=== PATIENT | female | born 1985 | race Caucasian/White ===

== ENCOUNTER 2021-02-01 17:02 | Emergency (ER) | payer BC ==
[~2021-02-01] VITALS: Ht 157.5 cm; Wt 51.9 kg
[2021-02-01 17:10] VITALS: BP 123/76
--- NOTE | 2021-02-01 17:19 | PHYS DOC ---
General Adult EDM: Chief Complaint: HAND PROBLEM Problems: (1) Hand pain, right HPI: HPI: Patient is a 36 year old female who presents with pain to the fourth digit on her right hand. Patient states she sustained a boxer's fracture to the fifth metacarpal in October of this year. She was instructed to wear a brace for the next month, but took it off today. Her 2 large dogs were fighting, when she intervened she noticed medial displacement of her fourth digit with swelling and pain. She rates her pain as 8/10 currently, in addition to some tingling and temperature changes to the finger. She denies any bite or laceration. She denies any other injuries. Patient denies use of control or contraception, but states her part risk of is "very low." Patient has no other complaints at this time. Review of Systems: Review of Systems: Constitutional: Denies fever or chills Respiratory: Denies cough or shortness of breath Cardiovascular: Denies chest pain or edema Musculoskeletal: See HPI Integument: See HPI Neurologic: See HPI Allergies: Allergies: Allergies Coded Allergies Type Severity Reaction Last Updated Verified sulfamethoxazole Allergy Unknown 02/01/21 Yes trimethoprim Allergy Unknown 02/01/21 Yes Physical Exam: PE: Constitutional: Well developed, well nourished, no acute distress, non-toxic appearance. [] HENT: Normocephalic, atraumatic, bilateral external ears normal, nose normal. [] Eyes: Conjunctiva normal, no discharge. [] Cardiovascular: Heart rate regular rhythm, no murmur [] Lungs & Thorax: Bilateral breath sounds clear to auscultation [] Skin: Warm, dry, no erythema, no rash. [] Extremities: Right fourth digit is medially displaced, ecchymosis and swelling present. Range of motion of right fourth digit limited secondary to pain. Otherwise range of motion and strength are intact. Neurovascular intact in extremities x4. Neurologic: Alert and oriented X 3, normal motor function, normal sensory function, no focal deficits noted. [] EKG: EKG: [] Radiology/Procedures: Radiology/Procedures: PROCEDURE: HAND RIGHT 3V Exam: Right hand 3 views INDICATION: Injury, pain right hand TECHNIQUE: Frontal, lateral and oblique views of the right hand Comparisons: None FINDINGS: Obliquely oriented fracture to the proximal phalanx of the fourth digit. Additionally there is a obliquely oriented fracture through the fifth metacarpal. No other fractures are identified. Joint spaces are well-maintained. IMPRESSION: Obliquely oriented fracture to the proximal phalanx of the fourth digit and the fifth metacarpal. Electronically signed by: Ben Farley MD (02/01/2021 6:06 PM) [facility] Heart Score: C/O Chest Pain: N/A Course & Med Decision Making: Course & Med Decision Making Pertinent Labs and Imaging studies reviewed. (See chart for details) X-rays showed the fifth metacarpal fracture in addition to a new fourth proximal phalanx fracture. Dr. Russo's office was called to notify and make sure patient can be followed up with tomorrow morning. Spoke with Rocio who is comfortable with the vamsi taped third and fourth digits as well as a gutter splint. Patient will continue pain medication previously prescribed by Dr. Russo at home. Dragon Disclaimer: Dragon Disclaimer: This electronic medical record was generated, in whole or in part, using a voice recognition dictation system. Departure Departure: Impression: Primary Impression: Fracture of proximal phalanx of digit of right hand Additional Impression: Fracture of metacarpal bone with delayed healing Disposition: 01 HOME / SELF CARE / HOMELESS Condition: STABLE Referrals: PCP,NO (PCP) Patient Instructions: Finger Fracture, [id number], Hand Fracture, Metacarpals, [id number] Additional Instructions: Call Dr. Russo's office first thing in the morning tomorrow, at 8:30 AM. The nurse was notified of your visit today, and will ensure that you can be seen tomorrow. Please keep the splint provided here in the emergency department on until you reach the office tomorrow. At that time, they will reevaluate and determine whether new splint or other treatment is needed. Return to the emergency department for signs of compartment syndrome: Tingling, pale skin, cold extremity, absence of pulses. ANGY SALEH Feb 01, 2021 17:19
[2021-02-01] MEDS ORDERED: ACETAMINOPHEN 500 MG TABLET PO ONE (17:30)
--- NOTE | 2021-02-01 18:08 | RAD ---
Exam: Right hand 3 views INDICATION: Injury, pain right hand TECHNIQUE: Frontal, lateral and oblique views of the right hand Comparisons: None FINDINGS: Obliquely oriented fracture to the proximal phalanx of the fourth digit. Additionally there is a obli quely oriented fracture through the fifth metacarpal. No other fractures are identified. Joint spaces are well-maintained. IMPRESSION: Obliquely oriented fracture to the proximal phalanx of the fourth digit and the fifth metacarpal. Electronically signed by: Ben Farley MD (02/01/2021 6:06 PM) [facility]
== END 2021-02-01 18:20 | disposition home or self-care (01) ==
LOC: ER 17:02
DX: S62.306A Unspecified fracture of fifth metacarpal bone, right hand, initial encounter for closed fracture (principal); S62.304A Unspecified fracture of fourth metacarpal bone, right hand, initial encounter for closed fracture; X58.XXXA Exposure to other specified factors, initial encounter; Y93.89 Activity, other specified; Y92.89 Other specified places as the place of occurrence of the external cause; Y99.8 Other external cause status
CPT/HCPCS: 29125; 73130; 99283-25

== ENCOUNTER 2021-05-16 17:42 | Emergency (ER) | payer BC ==
[~2021-05-16] VITALS: Ht 157.5 cm; Wt 51.9 kg
--- NOTE | 2021-05-16 18:19 | PHYS DOC ---
Past History Past Surgical History: No Surgical History Alcohol Use: None General Adult EDM: Chief Complaint: ABDOMINAL PAIN IN HPI: HPI: ".. [place] leave on airplane at[place] 0200 am today.. I am nervous... This is my first and ultrasound that was normal on Monday.... everything looked okay ... I a.m. on vitamins.... But sometimes I have some lower pelvic abdomen cramping... Or discomfort... 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 . No history of trauma. Is on vitamins. Patient is normally healthy. No recent travel. Has not been to [place] for 3 years and plans to visit family on flight this morning in the [place] area. Patient has had COVID vaccination. Patient has not had COVID booster yet. Patient has not had flu vaccination. Patient normally follows with Dr. Alvarado. No history of dysuria. Patient's had normal stools.. No vaginal discharge or bleeding. heart rate runs 140s to 150s. Movement Review of Systems: Review of Systems: Constitutional: Denies fever or chills Eyes: Denies change in visual acuity HENT: Denies nasal congestion or sore throat Respiratory: Denies cough or shortness of breath Cardiovascular: Denies chest pain or edema GI: Denies abdominal pain,, vomiting, bloody stools or diarrhea. Complains of nausea and abdomen fullness : Denies dysuria Musculoskeletal: Denies back pain or joint pain Integument: Denies rash Neurologic: Denies headache, focal weakness or sensory changes Endocrine: Denies polyuria or polydipsia Lymphatic: Denies swollen glands Psychiatric: Denies depression or anxiety Family History: Family History: Noncontributory to presentation Current Medications: Current Meds: See nursing for home meds Allergies: Allergies: Allergies Coded Allergies Type Severity Reaction Last Updated Verified sulfamethoxazole Allergy Unknown 02/01/21 Yes trimethoprim Allergy Unknown 02/01/21 Yes Physical Exam: PE: Constitutional: Well developed, well nourished, no acute distress, non-toxic appearance. [] HENT: Normocephalic, atraumatic, bilateral external ears normal, oropharynx moist, no oral exudates, nose normal. [] Eyes: PERRLA, EOMI, conjunctiva normal, no discharge. [] Neck: Normal range of motion, no tenderness, supple, no stridor. [] Cardiovascular:Heart rate regular rhythm, no murmur [] Lungs & Thorax: Bilateral breath sounds clear to auscultation [] Abdomen: Bowel sounds normal, soft, no tenderness, no masses, no pulsatile masses. [] Skin: Warm, dry, no erythema, no rash. [] Back: No tenderness, no CVA tenderness. [] Extremities: No tenderness, no cyanosis, no clubbing, ROM intact, no edema. [] Neurologic: Alert and oriented X 3, normal motor function, normal sensory function, no focal deficits noted. [] Psychologic: Affect normal, judgement normal, mood normal. [] Current Patient Data: Vital Signs: Vital Signs Date Time Temp Pulse Resp B/P (MAP) Pulse Ox O2 Delivery O2 Flow Rate FiO2 05/16/21 17:54 98.2 71 16 118/86 (97) 96 Room Air EKG: EKG: [] Radiology/Procedures: Radiology/Procedures: [] Heart Score: C/O Chest Pain: N/A Risk Factors: Risk Factors: DM, Current or recent (<one month) smoker, HTN, HLP, family history of CAD, obesity. Risk Scores: Score 0 - 3: 2.5% MACE over next 6 weeks - Discharge Home Score 4 - 6: 20.3% MACE over next 6 weeks - Admit for Clinical Observation Score 7 - 10: 72.7% MACE over next 6 weeks - Early Invasive Strategies Course & Med Decision Making: Course & Med Decision Making Pertinent Labs and Imaging studies reviewed. (See chart for details) Patient push fluids. Take vitamins. Keep follow-up with OB. Return if any concerns. Practice Covid precautions. Return if any concerns. Impression: 1. Intrauterine approximately 14 weeks 2. Patient's blood type is A positive 3. Hemoglobin is 11.9 [] Saige Disclaimer: Saige Disclaimer: This electronic medical record was generated, in whole or in part, using a voice recognition dictation system. Departure Departure: Referrals: LE ALVARADO (PCP) Saige Disclaimer This chart was dictated in whole or in part using Voice Recognition software in a busy, high-work load, and often noisy Emergency Department environment. It may contain unintended and wholly unrecognized errors or omissions. CLEM FITZPATRICK MD May 16, 2021 18:19
[2021-05-16] MEDS ORDERED: IV RINGERS SOLUTION,LACTATED 1,000 ML IV SCH (18:30)
[2021-05-16] MEDS ORDERED: FAMOTIDINE 20 MG/2 ML VIAL IVP ONE (18:30)
[2021-05-16] MEDS ORDERED: ONDANSETRON PF 4 MG/2 ML VIAL. IVP ONE (18:30)
[2021-05-16 19:25] LABS: CREATININE 0.6 mg/dL (0.6-1.0); GFR 112.5; POTASSIUM 3.5 mmol/L (3.5-5.1)
[2021-05-16 19:26] LABS: MAGNESIUM 2.3 mg/dL (1.8-2.4)
[2021-05-16 19:27] LABS: BASO % 1 % (0-3); EOS # 0.1 x10^3/uL (0.0-0.7); EOS % 1 % (0-3); HEMATOCRIT 34.9 % (36.0-47.0); HEMOGLOBIN 11.9 g/dL (12.0-15.5); LYMPH # 2.1 x10^3/uL (1.0-4.8); LYMPH % 21 % (24-48); MEAN CORPUSCULAR HEMOGLOBIN 32 pg (25-35); MEAN CORPUSCULAR HGB CONC 34 g/dL (31-37); MEAN CORPUSCULAR VOLUME 95 fL (79-100); MONO # 0.5 x10^3/uL (0.0-1.1); MONO % 5 % (0-9); NEUT # 7.2 x10^3uL (1.8-7.7); NEUT % 72 % (31-73); PLATELET COUNT 227 x10^3/uL (140-400); RED BLOOD COUNT 3.69 x10^6/uL (3.50-5.40); RED CELL DISTRIBUTION WIDTH 13.1 % (11.5-14.5); WHITE BLOOD COUNT 9.9 x10^3/uL (4.0-11.0)
[2021-05-16 20:07] LABS: BILIRUBIN,URINE NEG (NEG); CLARITY,URINE CLEAR; COLOR,URINE COLORLESS; GLUCOSE,URINE NEG (NEG); UROBILINOGEN,URINE 0.2 mg/dL (0.2 mg/dL)
[2021-05-16 20:08] LABS: BACTERIA,URINE 0 /HPF (0-FEW); NITRITE,URINE NEG (NEG); RBC,URINE 0 /HPF (0-2); WBC,URINE 0 /HPF (0-4)
[2021-05-16 20:52] VITALS: BP 128/63
== END 2021-05-16 20:54 | disposition home or self-care (01) ==
LOC: ER 17:42
DX: O26.891 Other specified pregnancy related conditions, first trimester (principal); R11.0 Nausea; Z3A.14 14 weeks gestation of pregnancy; Z88.2 Allergy status to sulfonamides; Z88.1 Allergy status to other antibiotic agents
CPT/HCPCS: 36415; 80048; 81001; 83690; 83735; 85025; 86900; 86901; 96360; 96361; 99283; J7120